=== PATIENT | male | born 1980 | race Caucasian/White ===

== ENCOUNTER → 2017-04-16 | Outpatient (CLI) | payer OTHER ==
--- NOTE | 2017-04-16 17:32 | REP ---
RIGHT HIP, TWO VIEWS: HISTORY: Pain. COMPARISON: 06/02/2015 The patient is status-post repair of an acetabulum fracture. A fixation plate and screws are present. There is no acute fracture or dislocation. There is mild narrowing of the joint space. A calcified density is present inferior to the medial humeral head. This may represent ligamentous or tendon calcification. IMPRESSION: There is no acute fracture or dislocation. Signed by Sherman Irizarry MD 04/17/2017 09:59 A
== END ==
LOC: M RAD 16:06
PROVIDERS: ATTEND Nurse Practitioner Adult Health
DX: M25.551 Pain in right hip (principal)

== ENCOUNTER → 2022-10-15 | Outpatient (CLI) | payer OTHER | LOC: M SLEEP 20:00 | PROVIDERS: ATTEND Nurse Practitioner Family | DX: R40.0 Somnolence (principal) ==

== ENCOUNTER → 2023-08-29 | Outpatient (CLI) | payer OTHER, SELFPAY | LOC: M SOG 07:59 | PROVIDERS: ATTEND Orthopaedic Surgery | DX: M25.511 Pain in right shoulder (principal) ==

== ENCOUNTER → 2023-09-27 | Outpatient (CLI) | payer OTHER | LOC: M PLAIMG 09-11 07:25 | PROVIDERS: ATTEND Orthopaedic Surgery | DX: M25.511 Pain in right shoulder (principal) ==